=== PATIENT | female | born 2000 | race Caucasian/White ===

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

== ENCOUNTER 2020-04-28 13:06 | Emergency (ER) | payer OTHER ==
[~2020-04-28] VITALS: Ht 167.6 cm; Wt 54.4 kg
== END 2020-04-28 14:32 | disposition home or self-care (01) ==
LOC: ER 13:06 → EMR PED 13:06
DX: T80.62XA Other serum reaction due to vaccination, initial encounter (principal); R42 Dizziness and giddiness; T50.B95A Adverse effect of other viral vaccines, initial encounter; Y92.89 Other specified places as the place of occurrence of the external cause

== ENCOUNTER → 2022-12-27 | Emergency (ER) | payer OTHER ==
[~2022-12-27] VITALS: Ht 167.6 cm; Wt 63.5 kg
== END | disposition home or self-care (01) ==
LOC: ER 09:19
DX: S50.02XA Contusion of left elbow, initial encounter (principal); V49.9XXA Car occupant (driver) (passenger) injured in unspecified traffic accident, initial encounter; Y93.9 Activity, unspecified; Y92.9 Unspecified place or not applicable; Y99.9 Unspecified external cause status

== ENCOUNTER 2023-05-07 14:34 | Emergency (ER) | payer OTHER ==
[~2023-05-07] VITALS: Ht 162.6 cm; Wt 58.1 kg
[2023-05-07 16:50] LABS: HEMOGLOBIN 14.1 g/dL (12.0-15.00); MEAN CELL VOLUME 88.5 fL (80.00-100.00); MEAN CORPUSCULAR HEMOGLOBIN 30.3 pg (27.00-32.0); MEAN CORPUSCULAR HGB CONC 34.3 g/dl (32.0-36.0); PLATELET COUNT 313 K/uL (150-450); RED BLOOD COUNT 4.63 M/uL (4.00-6.00); RED CELL DISTRIBUTION WIDTH 12.9 % (11.5-14.5)
[2023-05-07 17:32] LABS: ALBUMIN 4.2 gm/dL (3.4-5.0); BILIRUBIN TOTAL 0.77 mg/dL (0.3-1.2); CALCIUM 9.6 mg/dL (8.5-10.1); CREATININE SERUM 0.56 mg/dL (0.55-1.02); GFR 134.15; GLOBULINA 3.4 G/DL (2.4-3.5); POTASSIUM 3.82 mEq/L (3.5-5.1); TOTAL PROTEIN 7.6 gm/dL (6.4-8.2)
[2023-05-07 17:34] LABS: PH,URINE 5.5 (5.0-8.0); URINE APPEARANCE Clear; URINE BILIRRUBIN Negative (NEGATIVE); URINE BLOOD Negative; URINE COLOR Yellow; URINE GLUCOSE Negative (NEGATIVE); URINE LEUKOCYTE Trace; URINE NITRATE Negative; URINE PROTEIN Negative (NEGATIVE); URINE UROBILINOGEN 0.2 E.U./dl
[2023-05-07 17:38] LABS: URINE BACTERIA 4509.2 uL (0.0-1933); URINE EPITHELIAL CELLS 15.3 uL (0.0-38.8); URINE RBC 4.3 uL (0.0-20.8); URINE WBC 47.7 uL (0.0-23.2)
[2023-05-07 18:13] LABS: URINE CRYSTALS FEW /HPF; URINE MUCUS SCANT
== END 2023-05-07 18:47 | disposition home or self-care (01) ==
LOC: ER 14:34
PROVIDERS: General Practice
DX: O26.891 Other specified pregnancy related conditions, first trimester (principal); Z3A.01 Less than 8 weeks gestation of pregnancy

== ENCOUNTER 2024-04-23 12:42 | Emergency (ER) | payer OTHER ==
[~2024-04-23] VITALS: Ht 167.6 cm; Wt 56.7 kg
[2024-04-23] MEDS ORDERED: DESVENLAFAXINE100 M3 PO (13:13)
[2024-04-23] MEDS ORDERED: BUSPIRONE HCL15 MG PO (13:13)
[2024-04-23] MEDS ORDERED: DEXAMETHASONE SODIUM PHOSPHATE 4 MG/ML VIAL IM STA (13:33)
[2024-04-23] MEDS ORDERED: DEXAMETHASONE SODIUM PHOSPHATE 4 MG/ML VIAL ONE (13:38)
[2024-04-23 13:54] LABS: HEMATOCRIT 41.7 % (36.0-45.00); HEMOGLOBIN 13.9 g/dL (12.0-15.00); MEAN CELL VOLUME 90.5 fL (80.00-100.00); MEAN CORPUSCULAR HEMOGLOBIN 30.1 pg (27.00-32.0); MEAN CORPUSCULAR HGB CONC 33.3 g/dl (32.0-36.0); PLATELET COUNT 309 K/uL (150-450)
[2024-04-23] MEDS ORDERED: ACETAMINOPHEN 500 MG GEL..CAP PO ONE (13:54)
[2024-04-23] MEDS ORDERED: ACETAMINOPHEN 500 MG GEL..CAP PO STA (14:12)
== END 2024-04-23 14:58 | disposition home or self-care (01) ==
LOC: ER 12:44
PROVIDERS: General Practice
DX: B34.9 Viral infection, unspecified (principal); Z20.822 Contact with and (suspected) exposure to COVID-19

== ENCOUNTER → 2024-08-12 | Emergency (ER) | payer OTHER ==
[~2024-08-12] VITALS: Ht 167.6 cm; Wt 63.5 kg
[~2024-08-12] MED LIST changes: +AMOX1TAB5 PO; +BUSPIRONE HCL15 MG PO; +BUTALB-ACETAMI1 EAC2 PO; +BUTALB/ACETAMINOPHEN/CAFFEINE 1 TAB TABLET PO ONE; +DESVENLAFAXINE100 M3 PO; +FAMOTIDINE/PF 20 MG/2 ML VIAL ONE; +FAMOtidine 10 MG/ML (4ML VIAL) IV ONE; +ONDANSETRON HCL 2 MG/ML VIAL IV ONE; +ONDANSETRON HCL 2 MG/ML VIAL ONE; +PEPCID AC20 MG PO; +ZOFRAN8 MG PO
[2024-08-12 21:29] LABS: BASO % 0.4 % (0.1-1.2); EOS # 0.02 (0.04-0.54); EOS % 0.2 % (0.7-7.0); HEMATOCRIT 43.1 % (34.1-44.9); HEMOGLOBIN 14.3 g/dL (11.2-15.7); LYMPH # 0.99 (1.18-3.74); LYMPH % 7.9 % (19.3-53.1); MEAN CORPUSCULAR HEMOGLOBIN 28.9 pg (25.6-32.2); MONO # 0.37 (0.24-0.82); NEUT # 10.99 (1.56-6.13); NEUT % 88.2 % (34.0-71.1); PLATELET COUNT 341 K/uL (163-369); RED BLOOD COUNT 4.95 M/uL (3.93-5.22)
[2024-08-12 22:00] LABS: ALBUMIN 4.3 gm/dL (3.4-5.0); ALKALINE PHOSPHATASE 79 U/L (50-136); ALT/SGPT 28 U/L (12-78); ANION GAP 10 (10.0-20.0); AST/SGOT 23 U/L (15-37); BILIRUBIN TOTAL 0.32 mg/dL (0.3-1.2); BLOOD UREA NITROGEN 11 mg/dL (7-18); BUN CREA RATIO 17 (7.0-25.0); CALCIUM 9.9 mg/dL (8.5-10.1); CARBON DIOXIDE 27 mEq/L (21-32); CHLORIDE 109 mmol/L (98-107); CREATININE SERUM 0.66 mg/dL (0.55-1.02); GFR 109.12; GLUCOSE FASTING 104 mg/dL (65-100); OSMOLALITY SERUM 283 MOSM/KG (275-295); POTASSIUM 4.28 mEq/L (3.5-5.1); SODIUM 142 mmol/L (136-145); TOTAL PROTEIN 8.3 gm/dL (6.4-8.2)
[2024-08-12 22:02] LABS: HCG QUANTITATIVE < 1 mUI/mL (1-3)
[2024-08-12 22:12] LABS: COVID-19 AG NEGATIVE (NEGATIVE)
[2024-08-12 22:23] LABS: INFLUENZA A AG NEGATIVE (NEGATIVE); INFLUENZA B AG NEGATIVE (NEGATIVE)
== END | disposition home or self-care (01) ==
LOC: ER 19:44
PROVIDERS: General Practice
DX: J32.9 Chronic sinusitis, unspecified (principal); R51.9 Headache, unspecified; Z20.822 Contact with and (suspected) exposure to COVID-19; Z88.6 Allergy status to analgesic agent